=== PATIENT | male | born 1970 | race Hispanic/Latino ===

== ENCOUNTER 2025-02-14 14:49 | Emergency (ER) | payer OTHER ==
[~2025-02-14] VITALS: Ht 165.1 cm; Wt 90.7 kg
[2025-02-14 15:15] VITALS: TEMP 98.3
[2025-02-14] MEDS ORDERED: FLUORESCEIN SOD(OPTH) 1 MG STRP ONE (15:24)
[2025-02-14] MEDS ORDERED: TETRACAINE HCL 0.5% OPTH SOLN 4 ML BTL ONE (15:24)
[2025-02-14] MEDS: FLUORESCEIN SOD(OPTH) 1 MG STRP OP ONE (15:40)
[2025-02-14] MEDS: TETRACAINE HCL 0.5% OPTH SOLN 4 ML BTL OP ONE (15:40)
[2025-02-14] MEDS: TOBRAMYCIN 0.3% OPTH OINT 3.5 GM TUBE OP ONE (15:50)
[2025-02-14] MEDS: OPTH OP STA (15:51)
[2025-02-14] MEDS: CYCLOPENTOLATE HCL OP STA (15:51)
[2025-02-14] MEDS: CYCLOPENTOLATE HCL 1% OPTH SOLN 2ML BTL OP STA (15:51)
[2025-02-14 16:00] VITALS: PULSE 75; RESP 16; O2SAT 100
== END 2025-02-14 16:05 | disposition home or self-care (01) ==
LOC: ER 15:26
DX: H57.11 Ocular pain, right eye (principal); S05.01XA Injury of conjunctiva and corneal abrasion without foreign body, right eye, initial encounter; Z85.038 Personal history of other malignant neoplasm of large intestine
CPT/HCPCS: 99283